=== PATIENT | female | born 1995 | race Caucasian/White ===

== ENCOUNTER 2021-12-17 13:42 | Outpatient (CLI) | payer OTHER | END 2021-12-17 13:43 | disposition home or self-care (01) | LOC: RAD-FRANK 13:42 | PROVIDERS: ATTEND Nurse Practitioner Family | DX: M70.21 Olecranon bursitis, right elbow (principal) ==

== ENCOUNTER 2022-07-21 08:49 | Emergency (ER) | payer BC, OTHER | END 2022-07-21 10:53 | disposition home or self-care (01) | LOC: ERS 08:49 | DX: S93.401A Sprain of unspecified ligament of right ankle, initial encounter (principal); J45.909 Unspecified asthma, uncomplicated; X50.1XXA Overexertion from prolonged static or awkward postures, initial encounter ==

== ENCOUNTER 2023-11-05 07:31 | Outpatient (CLI) | payer BC | END 2023-11-05 07:32 | disposition home or self-care (01) | LOC: BICCT 07:31 | PROVIDERS: ATTEND Nurse Practitioner Family | DX: R16.0 Hepatomegaly, not elsewhere classified (principal); K76.89 Other specified diseases of liver | CPT/HCPCS: 74170 ==